=== PATIENT | female | born 1965 | race Caucasian/White ===

== ENCOUNTER → 2017-05-03 | Outpatient (CLI) | payer BC ==
[~2017-05-03] MED LIST: ATOR-54 PO; CALC-393 PO; CETI10TA84 PO; CHOL100010 PO; FLUO20CA35 PO; INTE1KIT4 IM; LEVO125T72 PO; LISI-725 PO; METR1GEL3 EXT; NXM/40 PO; ONDA4TAB65 PO; RANI300T2 PO; SUMA100T15 PO
[2017-05-03 17:54] LABS: ALT/SGPT 24 U/L (12-78); AST/SGOT 15 U/L (15-37); BLOOD UREA NITROGEN 10 mg/dl (7-18); BUN/CREATININE RATIO 12.2 (10-20); CALCIUM 8.6 mg/dl (8.5-10.1); CARBON DIOXIDE 28 mmol/L (21-32); CHLORIDE 107 mmol/L (98-107); CREATININE 0.85 mg/dl (0.60-1.20); GLUCOSE 89 mg/dl (70-99); POTASSIUM 4.1 mmol/L (3.5-5.1); SODIUM 142 mmol/L (136-145)
[2017-05-03 17:57] LABS: ALB/GLOB RATIO 1.1 (0.9-2); ALKALINE PHOSPHATASE 89 U/L (45-117)
[2017-05-03 19:42] LABS: BASO % 0.5 %; BASO ABS # 0.03 K/uL (0-0.2); COMPLETE YES; EOS % 2.1 %; HEMATOCRIT 44.4 % (37-47); IG% 0.2 %; LYMPH % 36.9 %; LYMPH ABS # 2.28 K/uL (1.2-3.4); MEAN CELL VOLUME 94.1 fL (80-100); MEAN CORPUSCULAR HEMOGLOBIN 29.2 pg (25-34); MEAN CORPUSCULAR HGB CONC 31.1 g/dl (32-36); MEAN PLATELET VOLUME 10.2 fL (7.4-10.4); MONO % 10.4 %; NEUT % 49.9 %; PLATELET COUNT 259 K/uL (130-400); RED BLOOD COUNT 4.72 M/uL (4.2-5.4); WHITE BLOOD COUNT 6.18 K/uL (4.8-10.8)
== END | disposition home or self-care (01) ==
LOC: C.LAB 16:52
PROVIDERS: ATTEND Physician Assistant
DX: G35 Multiple sclerosis (principal)

== ENCOUNTER → 2017-05-11 | Outpatient (CLI) | payer BC ==
--- NOTE | 2017-05-11 21:38 | DIAGNOSTIC IMAGING REPORT ---
Brain MRI WITHOUT CONTRAST HISTORY: Weakness in these. G35 Multiple sclerosis TECHNIQUE: Multiplanar multisequence MRI of the brain was performed without the use of contrast. COMPARISON STUDY: Brain MRI 05/13/2014. FINDINGS: There are no areas of restricted diffusion to suggest acute infarction. The midline structures are intact. The paranasal sinuses are clear. The mastoid air cells are clear. The ventricles and sulci are within normal limits for age. There is no mass, hematoma, midline shift. The major vascular flow-voids at the skull base are well maintained. There again noted a few scattered foci of T2 hyperintensity seen within the white matter of the supratentorial brain. These are not significant change compared to the prior study. The optic nerves are symmetric. Small focus of demyelination within the right posterior medulla oblongata remains stable. There is also a 5 mm T2 hyperintense focus within the white matter of the left cerebellar hemisphere. This appears to be new compared to the prior study. IMPRESSION: A few scattered white matter plaques as described above consistent with the patient's history of multiple sclerosis. The majority of these are stable compared to the prior study. There appears to be a single new 5 mm white matter plaque within the left cerebellar hemisphere. Electronically signed by: Regino Guerra M.D. 05/11/2017 9:36 PM Dictated Date/Time: 05/11/2017 9:30 PM
== END | disposition home or self-care (01) ==
LOC: C.MRI 16:20
PROVIDERS: ATTEND Physician Assistant
DX: G35 Multiple sclerosis (principal); Z12.4 Encounter for screening for malignant neoplasm of cervix; N89.8 Other specified noninflammatory disorders of vagina

== ENCOUNTER → 2017-05-11 | Outpatient (CLI) | payer BC | END | disposition home or self-care (01) | LOC: C.PAPS 15:59 | PROVIDERS: ATTEND Physician Assistant | DX: Z12.4 Encounter for screening for malignant neoplasm of cervix (principal) ==

== ENCOUNTER → 2017-05-11 | Outpatient (CLI) | payer BC | END | disposition home or self-care (01) | LOC: C.LABSPEC 15:52 | PROVIDERS: ATTEND Physician Assistant | DX: N89.8 Other specified noninflammatory disorders of vagina (principal) ==

== ENCOUNTER → 2017-05-28 | Outpatient (CLI) | payer BC ==
--- NOTE | 2017-05-28 18:42 | DIAGNOSTIC IMAGING REPORT ---
RIGHT KNEE 1 OR 2 VIEWS ROUTINE CLINICAL HISTORY: Right knee pain. COMPARISON: None FINDINGS: Alignment of the right knee is anatomic. There is no acute fracture. Joint spaces are preserved. There is a suspected small right knee joint effusion. IMPRESSION: 1. No acute fracture. 2. Small right knee joint effusion. Electronically signed by: Dhaval Payton M.D. 05/28/2017 6:41 PM Dictated Date/Time: 05/28/2017 6:40 PM
== END | disposition home or self-care (01) ==
LOC: C.RAD 17:19
PROVIDERS: ATTEND Nurse Practitioner
DX: M25.561 Pain in right knee (principal); M25.461 Effusion, right knee

== ENCOUNTER 2017-11-09 06:27 | Emergency (ER) | payer BC ==
[~2017-11-09] VITALS: Ht 165.1 cm; Wt 73.2 kg
[2017-11-09 06:31] VITALS: TEMP 36.5; Ht 165.1 cm; Wt 73.2 kg
--- NOTE | 2017-11-09 06:51 | EMERGENCY ROOM VISIT NOTE ---
History Report prepared by Grisibe: Mer Elizabeth Under the Supervision of: Dr. Freddy Winter M.D. First contact with patient: 06:40 Chief Complaint: EYE ASSESSMENT Stated Complaint: VISION GOING OUT IN LEFT EYE History of Present Illness The patient is a 52 year old female who presents to the Emergency Room with complaints of worsening vision changes in her left eye. She reports for the past 2 weeks, she has experienced floaters that "look like flies moving around" . Yesterday she started to actually lose vision in the area closest to her nose. She states the area seems like a "flap" that "can move around". She has experienced double vision in her left eye due to complications from MS in the past, but it's never presented like her current symptoms. 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 She complains of diarrhea, but states this is not new. The patient also admits to a history of migraine headaches, but states she has never experienced vision changes with the headaches. She denies any recent fevers, chills, cough, congestion, chest pain, shortness of breath, nausea, vomiting, abdominal pain or urinary symptoms. Source of History: patient Onset: 2 weeks ELECTRONIC COMPONENT PROCESSOR Position: ear (left) Timing: worsening Associated Symptoms: + diarrhea, No fevers, No chills, No cough (or congestion), No chest pain, No SOB, No nausea, No vomiting, No abdominal pain, No urinary symptoms Review of Systems See HPI for pertinent positives and negatives. A total of ten systems were reviewed and were otherwise negative. Past Medical & Surgical Medical Problems: (1) Anxiety State Nec (2) Chronic Liver Dis Nec (3) Depressive Disorder Nec (4) Esophageal Reflux (5) Hypertension (6) IBS (irritable bowel syndrome) (7) Migraine headache Family History Anxiety disorder SISTER, Onset:Unknown Diabetes mellitus FH: cardiovascular disease (No history) FH: obesity SISTER, Onset:Unknown High cholesterol SISTER, Onset:Unknown Hypertension SISTER, Onset:Unknown Psychiatric condition MOTHER, Onset:Unknown (Never treated significant mental health issues, notes that her mother "imagined things") Social History Smoking Status: Current Every Day Smoker Alcohol Use: occasionally Drug Use: none Marital Status: Housing Status: lives with family Occupation Status: retired Current/Historical Medications Scheduled Atorvastatin (Lipitor), 20 MG PO QAM Cholecalciferol (Vitamin D), 1,000 UNITS PO DAILY Esomeprazole Magnesium (Nexium), 40 MG PO QAM Fluoxetine (Prozac), 60 MG PO QAM Interferon Beta-1A (Avonex), 1 DOSE IM [id number] Levothyroxine Sodium (Synthroid), 125 MCG PO QAM Lisinopril (Zestril), 20 MG PO QAM Ranitidine Hcl (Zantac), 300 MG PO QAM Scheduled PRN Sumatriptan Succinate (Imitrex), 1 TAB PO UD PRN for Migraine Allergies Coded Allergies: No Known Allergies (Unverified , 11/09/17) Physical Exam Vital Signs Date Time Temp Pulse Resp B/P (MAP) Pulse Ox O2 Delivery O2 Flow Rate FiO2 11/09/17 07:46 61 16 150/89 98 11/09/17 06:31 36.5 67 20 163/91 95 Room Air Right Eye Acuity: 20/50 Left Eye Acuity: unable to see Physical Exam GENERAL: Awake, alert, well-appearing, in no distress HENT: Normocephalic, atraumatic. Oropharynx unremarkable. EYES: Normal conjunctiva. Sclera non-icteric. PEARRL NECK: Supple. No nuchal rigidity. FROM. No JVD. RESPIRATORY: Clear to auscultation. CARDIAC: Regular rate, normal rhythm. Extremities warm and well perfused. Pulses equal. ABDOMEN: Soft, non-distended. No tenderness to palpation. No rebound or guarding. No masses. RECTAL: Deferred. MUSCULOSKELETAL: Chest examination reveals no tenderness. The back is symmetrical on inspection without obvious abnormality. There is no CVA tenderness to palpation. No joint edema. LOWER EXTREMITIES: Calves are equal size bilaterally and non-tender. No edema. No discoloration. NEURO: Normal sensorium. No sensory or motor deficits noted. SKIN: No rash or jaundice noted. Medical Decision & Procedures ER Provider Diagnostic Interpretation: Radiology results as stated below per my review and interpretation: Retinal detachment seen on bedside ultrasound of the left eye. ED Course 0642: The patient was evaluated in room A10. A complete history and physical exam was performed. 0726: I discussed the patients case with [facility]. The patient will be further evaluated in the office this coming week. 0735: I reevaluated the patient. She is resting comfortably. I discussed her results and discharge instructions and she verbalized complete understanding and agreement. Medical Decision I reviewed the patient's past medical history, medications, and the nursing notes as described above. Differential diagnoses: Retinal detachment, vitreous detachment, vitreous hemorrhage, Amaurosis fugax, stroke and optic nerve retinitis. The patient is a 52-year-old woman with a pmhx HTN, MS, and prior b/l lensectomy who presents to emergency department with the complaint of left eye vision loss that started last night that felt like a shade coming down and her nasal field of vision in the setting of 1 week of feeling flies flying around her vision/floating per history of present illness. On arrival the patient is well-appearing, in no acute distress, afebrile with stable vital signs. Neurologically intact. Per manager assessment the patient has 20/50 vision on the right and no vision on the left. Bedside ultrasound demonstrates gross retinal detachment. Case was discussed with Dr. Mesa, ophthalmology, who recommends the patient come to the clinic to be seen this morning and that given her complete vision loss will likely have surgery on Sunday. Findings and plan for follow-up reviewed with patient. Patient agreeable and d/c'd per discharge instructions. Medication Reconcilliation Current Medication List: was personally reviewed by me Blood Pressure Screening Patient's blood pressure: Elevated blood pressure Blood pressure disposition: Referred to PCP Consults Time Called: 721 Consulting Physician: Dr. Mesa, [facility] Returned Call: 07 I discussed the patients case with Dr. Mesa, [facility]. The patient will be further evaluated in the office this coming week. Impression Primary Impression: Retinal detachment of left eye with giant tear Scribe Attestation The scribe's documentation has been prepared under my direction and personally reviewed by me in its entirety. I confirm that the note above accurately reflects all work, treatment, procedures, and medical decision making performed by me. Departure Information Dispostion Home / Self-Care Referrals Richard Shen M.D. (PCP) Devyn Mesa D.O. Patient Instructions ED Detachment Retinal, My [facility] Additional Instructions Please follow up with ophthalmology, Dr. Mesa, this morning re-evaluation. at [facility], [address], [place] [address] You were found to have a retinal detachment which will likely require prompt surgery, which may occur on Sunday. Return to the emergency department for worsening symptoms as described in the accompanying instructions.
[2017-11-09] MEDS ORDERED: CHOL100010 PO (07:07)
[2017-11-09 07:46] VITALS: BP 150/89; PULSE 61; O2SAT 98
== END 2017-11-09 07:47 | disposition home or self-care (01) ==
LOC: C.EDB 06:28 → C.EDA 07:47
DX: H33.032 Retinal detachment with giant retinal tear, left eye (principal); F41.9 Anxiety disorder, unspecified; K76.9 Liver disease, unspecified; F32.9 Major depressive disorder, single episode, unspecified; K21.9 Gastro-esophageal reflux disease without esophagitis; I10 Essential (primary) hypertension; K58.9 Irritable bowel syndrome, unspecified; G43.909 Migraine, unspecified, not intractable, without status migrainosus; Z83.3 Family history of diabetes mellitus; Z82.49 Family history of ischemic heart disease and other diseases of the circulatory system; F17.210 Nicotine dependence, cigarettes, uncomplicated; Z79.899 Other long term (current) drug therapy

== ENCOUNTER → 2017-11-12 | Day surgery (SDC) | payer BC ==
[2017-11-09 11:12] VITALS: Ht 165.1 cm; Wt 71.8 kg
[~2017-11-12] VITALS: Ht 165.1 cm; Wt 71.8 kg
[~2017-11-12] MED LIST changes: +500ML BSSPLUS 0.5ML EPI1:1000 IRRIG ONE; +ACETAMINOPHEN 325 MG TAB PO PRN; +ATROPINE SULFATE 0.1 MG/ML 5ML SYR IV PRN; +ATROPINE SULFATE 1% OP SOLN 2 ML BTL ONE; +BSS FLUSH ONE; +BUPIVACAINE HCL 0.75% 10 ML AMP/VIAL ONE; -CALC-393 PO; +CEFAZOLIN SOD 1 GM VIAL ONE; -CETI10TA84 PO; +DEXAMETHASONE SOD INJ 4 MG/ML VIAL ONE; +EpHEDrine SULFATE INJ 50 MG/ML AMP IV PRN; +EpINEphrine INJ 1MG/ML AMP 1 MG/ML AMP ONE; +FENTANYL CITRATE INJ 50 MCG/1 ML 2 ML VIAL IV PRN; +FENTANYL CITRATE INJ 50 MCG/1 ML 2 ML VIAL ONE; +HYALURONIDASE HUMAN 150 UNIT/ML INJ ONE; +INDOCYANINE GREEN 25 MG/10 ML ONE; +LACTATED RINGER'S 1000ML 500 ML IV SCH; +LIDOCAINE HCL 2% 2 ML VIAL (20MG/ML) ONE; -METR1GEL3 EXT; +MIDAZOLAM HCL 1 MG/ML 2ML VIAL ONE; +NEOMYCIN/POLYMYX/DEXAMETH OP OINT PER APP CHARGE ONE; +OCUCOAT 1 ML SOLN IO ONE; -ONDA4TAB65 PO; +ONDANSETRON INJ 2 MG/ML 2 ML VIAL IV PRN; +ONDANSETRON INJ 2 MG/ML 2 ML VIAL ONE; +POVIDONE-IODINE OP SOLN (SURGERY CNTR CHARGING ONLY) ONE; +PROPARACAINE 0.5% OP SOLN PER DROP CHARGE OPL SCH; +PROPOFOL IV EMULSION 10 MG/ML 20 ML VIAL IV ONE; +TIMOLOL MALEATE 0.5% OP SOLN PER DROP CHARGE ONE; +TRIAMCINOLONE ACETONIDE OPHTH 40 MG/ML VIAL STERILE IO ONE
[2017-11-12] MEDS: PHENYLEPHRINE HCL 2.5% OP SOLN PER DROP CHARGE OPL SCH ×2 (10:48→10:53)
[2017-11-12] MEDS: TROPICAMIDE 1% OP SOLN PER DROP CHARGE OPL SCH ×2 (10:49→10:54)
--- NOTE | 2017-11-12 11:29 | History & Physical Bridge - SC ---
H&P Re-Evaluation Bridge Note: pt has retinal detachment in left eye and is having vitrectomy left eye. I have examined the patient, reviewed the History & Physical and in the interval since the performance of the History & Physical I have noted the following changes of clinical significance: No changes noted
[2017-11-12 12:27] VITALS: TEMP 36.5
--- NOTE | 2017-11-12 12:27 | [facility] Operative Report ---
Operative Report Date of Service Nov 12, 2017. Operative Report PREOPERATIVE DIAGNOSIS: Retinal detachment, left eye. ICD 10: H33.022 POSTOPERATIVE DIAGNOSIS: same. PROCEDURE: 1. Pars plana vitrectomy, 23 gauge. 2. Fluid-air exchange. 3. Endolaser. 4 Air-gas exchange with SF6 20%. All to the left eye. CPT CODE: 08279 SURGEON: Devyn Mesa D.O. COMPLICATIONS: None. ESTIMATED BLOOD LOSS: None. SPECIMENS: None. ANESTHESIA: Retrobulbar block and MAC. INDICATIONS FOR PROCEDURE: Surgery is indicated to decrease risk of vision loss and potentially improve vision. CONSENT: The risks, benefits and alternatives were discussed with the patient including but not limited to decreased visual acuity, failure to achieve desired results, loss of the eye, infection, pain, glaucoma, lens changes, retinal tears, retinal detachment, the need for more procedures, drooping of the eyelid, blindness, and double vision. The patient is aware of risks and consents to the surgery. Consent is signed and on the chart. OPERATION AND FINDINGS: The patient was brought to the operating room where the patient was identified by name, date, and medical record number. The surgical site was confirmed with the informed written consent. The patient was sedated by the anesthesiology team after which a 50:50 mixture of 2% lidocaine and 0.75% bupivacaine with hyaluronidase was administered in a standard retrobulbar fashion. A total of 4 ml was administered without difficulty. The patient was then prepped and draped in the usual sterile manner for retinal surgery. A wire lid speculum was placed and an Delio 23-gauge trocar cannula system was employed. The inferior temporal trocar cannula was first placed in an angled fashion 3.75mm posterior to the surgical limbus and the infusion cannula was inserted into this cannula after which the intravitreal position was verified prior to turning the infusion on. Two more trocar cannulas were then inserted in an angled fashion, one in the superior temporal, and one in the superior nasal quadrant both 3.75mm posterior to the surgical limbus. A light pipe and vitrector were then introduced into the eye and the BIOM wide angle viewing system was brought into place. Posterior inspection revealed a retinal detachment from 11:30 to 5 o'clock with the inciting retinal break at 1 o'clock. Standard core vitrectomy was performed and the vitreous was insured to be totally detached from the posterior pole with the aid of the vitrector. The vitreous base was shaved for 360 degrees. At this point scleral depression was performed for 360 degrees and one other small retinal tear was noted at 12 o'clock, but no other retinal defects were found. Fluid air exchange was performed and the subretinal fluid was drained through a small retinotomy site that was fashioned superior to the arcades. Endolaser was then used to place laser around all retinal breaks and the drainage retinotomy. Next, an air gas exchange was performed with SF620% for a complete fill of the eye. The trocar cannulas were then removed and found to be air tight. The intraocular pressure was found to be within normal limits by palpation and subconjunctival injections of Kefzol and dexamethasone were administered inferiorly and superiorly. The wire lid speculum was removed. Maxitrol, atropine and timolol were applied to the surface of the eye. A light patch and shield were taped over the surface of the eye and the patient left the Operating Room in stable condition having tolerated the procedure well. DISPOSITION: A gas bracelet was placed on the patient's wrist and gas precautions reviewed as well as the positioning instructions. The patient has an appointment the following morning in the Ophthalmology Clinic. The patient is to call immediately if there are any problems overnight. I attest to the content of the Intraoperative Record and any orders documented therein. Any exceptions are noted below.
--- NOTE | 2017-11-12 12:29 | Discharge Instructions-SurgCtr ---
Discharge Instructions Date of Service Nov 12, 2017. Visit Reason for Visit: Left Eye Retinal Detachment Discharge Discharge Diagnosis / Problem: same Discharge Goals Goal(s): Improve function Activity Recommendations Activity Limitations: per Instructions/Follow-up section * May take Tylenol if needed for discomfort. * Do NOT lay flat on back and position head as follows: face foward and or chin down. Sleep on right side. * Do NOT remove green bracelet until instructed to do so by your surgeon and follow these precautions: * No air travel * No travel above 2500 feet * No nitrous oxide (N2O). * Do NOT remove eye shield. * NO straining, heavy lifting (>15 pounds) or bending below waist. * Avoid getting water or soap directly into operative eye. * Do NOT rub eye. If you experience increasing eye pain not relieved by medication, please contact us immediately at [phone]. If you are unable to reach someone at the above number, call [phone] and ask to speak with the EYE DOCTOR BUSINESS CONTINUITY STRATEGY DIRECTOR. Inform them that you are a Dr. Mesa patient who had recent surgery. Anesthesia . Post Anesthesia Instructions: If you have had General Anesthesia or IV Sedation: * Do not drive today. * Resume driving when surgeon permits. * Do not make important decisions or sign legal documents today. * Call surgeon for: 1. Temperature elevations greater than 101 degrees F. 2. Uncontrollable pain. 3. Excessive bleeding. 4. Persistent nausea and vomiting. 5. Medication intolerance (nausea, vomiting or rash). * For nausea and vomiting use only clear liquids such as: tea, soda, bouillon until nausea subsides, then gradually increase diet as tolerated. * If you have any concerns or questions, call your surgeon's office. If physician is unavailable and it is an emergency, call 911 or go to the nearest emergency room. . Diet Recommendations Home Diet: resume previous diet Procedures Procedures Performed: Left Eye 23 Gauge Vitrectomy, Endolaser, SF6 Gas Instillation Pending Studies Studies pending at discharge: no Medical Emergencies . Who to Call and When: Medical Emergencies: If at any time you feel your situation is an emergency, please call 911 immediately. . Non-Emergent Contact Non-Emergency issues call your: Pulp Grinder And Blender . . "Provider Documentation" section prepared by Devyn Mesa. .
[2017-11-12 12:54] VITALS: BP 120/76; PULSE 56; O2SAT 98
--- NOTE | 2017-11-12 12:56 | Anesthesia Progress Nt - [facility] ---
Anesthesia Post Op Note Date & Time Nov 12, 2017 at 12:55 Vital Signs Pain Intensity: 0 Vital Signs Past 12 Hours Date Time Temp Pulse Resp B/P (MAP) Pulse Ox O2 Delivery O2 Flow Rate FiO2 11/12/17 12:27 36.5 63 16 134/73 (93) 97 Room Air 11/12/17 10:42 36.6 72 16 128/79 (95) 98 Room Air Notes Mental Status: alert / awake / arousable, participated in evaluation Pt Amnestic to Procedure: Yes Nausea / Vomiting: adequately controlled Pain: adequately controlled Airway Patency, RR, SpO2: stable & adequate BP & HR: stable & adequate Hydration State: stable & adequate Anesthetic Complications: no major complications apparent
== END | disposition home or self-care (01) ==
LOC: X.SURG 10:17
PROVIDERS: ATTEND Ophthalmology
DX: H33.022 Retinal detachment with multiple breaks, left eye (principal); I10 Essential (primary) hypertension; E78.00 Pure hypercholesterolemia, unspecified; E03.9 Hypothyroidism, unspecified; K21.9 Gastro-esophageal reflux disease without esophagitis; K44.9 Diaphragmatic hernia without obstruction or gangrene; G35 Multiple sclerosis

== ENCOUNTER → 2017-12-31 | Day surgery (SDC) | payer BC ==
[2017-12-25 13:10] VITALS: Ht 165.1 cm; Wt 71.8 kg
[~2017-12-31] VITALS: Ht 165.1 cm; Wt 71.8 kg
[~2017-12-31] MED LIST changes: -500ML BSSPLUS 0.5ML EPI1:1000 IRRIG ONE; +ACETAMINOPHEN/CODEINE 300/30MG TAB PO ONE; +ATROPINE SULFATE 1% OP OINT PER APPLICATION CHARGE ONE; -BSS FLUSH ONE; -FENTANYL CITRATE INJ 50 MCG/1 ML 2 ML VIAL IV PRN; +NURSING VERBAL MED ORDER ONE; -OCUCOAT 1 ML SOLN IO ONE; -ONDANSETRON INJ 2 MG/ML 2 ML VIAL IV PRN; -ONDANSETRON INJ 2 MG/ML 2 ML VIAL ONE; -TRIAMCINOLONE ACETONIDE OPHTH 40 MG/ML VIAL STERILE IO ONE
[2017-12-31] MEDS: PHENYLEPHRINE HCL 2.5% OP SOLN PER DROP CHARGE OPL SCH ×2 (09:11→09:18)
[2017-12-31] MEDS: TROPICAMIDE 1% OP SOLN PER DROP CHARGE OPL SCH ×2 (09:12→09:19)
--- NOTE | 2017-12-31 09:41 | History & Physical Bridge - SC ---
H&P Re-Evaluation Bridge Note: Pt has macular hole left eye and is having vitrectomy left eye. I have examined the patient, reviewed the History & Physical and in the interval since the performance of the History & Physical I have noted the following changes of clinical significance: No changes noted
--- NOTE | 2017-12-31 10:44 | [facility] Operative Report ---
Operative Report Date of Service Dec 31, 2017. Operative Report PREOPERATIVE DIAGNOSIS: Macular hole, left eye. ICD10 CODE: H35.342 POSTOPERATIVE DIAGNOSIS: same. PROCEDURE: 1. Pars plana vitrectomy, 23 gauge. 2. Membrane peeling of the internal limiting membrane. 3. Fluid-air exchange. 4. Air-gas exchange w/ SF6 20 %. All to the left eye. CPT CODE: 50074 SURGEON: Devyn Mesa D.O. COMPLICATIONS: None. ESTIMATED BLOOD LOSS: None. SPECIMENS: None. ANESTHESIA: Retrobulbar block and MAC. INDICATIONS FOR PROCEDURE: The patient has a macular hole that is visually significant. Vitrectomy surgery is indicated to decrease risk of vision loss and potentially improve vision. CONSENT: The risks, benefits and alternatives were discussed with the patient including but not limited to decreased visual acuity, failure to achieve desired results, loss of the eye, infection, pain, glaucoma, lens changes, retinal tears, retinal detachment, the need for more procedures, drooping of the eyelid, blindness, and double vision. The patient is aware of risks and consents to the surgery. Consent is signed and on the chart. OPERATION AND FINDINGS: The patient was brought to the operating room where the patient was identified by name, date, and medical record number. The surgical site was confirmed with the informed written consent. The patient was sedated by the anesthesiology team after which a 50:50 mixture of 2% lidocaine and 0.75% bupivacaine with hyaluronidase was administered in a standard retrobulbar fashion. A total of 4 ml was administered without difficulty. The patient was then prepped and draped in the usual sterile manner for retinal surgery. A wire lid speculum was placed and an Delio 23-gauge trocar cannula system was employed. The inferior temporal trocar cannula was first placed in an angled fashion 3.75mm posterior to the surgical limbus and the infusion cannula was inserted into this cannula after which the intravitreal position was verified prior to turning the infusion on. Two more trocar cannulas were then inserted in an angled fashion, one in the superior temporal, and one in the superior nasal quadrant both 3.75mm posterior to the surgical limbus. A light pipe and vitrector were then introduced into the eye and the BIOM wide angle viewing system was brought into place. Standard core vitrectomy was performed and the vitreous was insured to be totally detached from the posterior pole with the aid of the vitrector. Next 0.05ml of indocyanine green was placed over the macular surface to stain the internal limiting membrane. This was washed from the eye after 10 seconds. At this point a flat contact lens was placed on the surface of the eye and a flex scraper and ILM forceps were then used to gently peel the internal limiting membrane surrounding the macular hole without difficulty. At this point scleral depression was performed for 360 degrees and no retinal tears or detachments were noted. A soft tip cannula was used to perform a fluid- air exchange. Next, SF6 20% was injected in through the infusion cannula for a complete gas fill of the eye. The trocar cannulas were then removed and found to be air tight. The intraocular pressure was found to be within normal limits by palpation and subconjunctival injections of Kefzol and dexamethasone were administered inferiorly and superiorly. The wire lid speculum was removed. Maxitrol and timolol were applied to the surface of the eye. A light patch and shield were taped over the surface of the eye and the patient left the Operating Room in stable condition having tolerated the procedure well. DISPOSITION: A gas bracelet was placed on the patients wrist. The patient was instructed to maintain a face down position overnight. The patient is to call immediately if there are any problems overnight. I attest to the content of the Intraoperative Record and any orders documented therein. Any exceptions are noted below.
[2017-12-31 10:46] VITALS: TEMP 36.9
--- NOTE | 2017-12-31 10:46 | Discharge Instructions-SurgCtr ---
Discharge Instructions Date of Service Dec 31, 2017. Visit Reason for Visit: Left Eye Macular Hole Discharge Discharge Diagnosis / Problem: same Discharge Goals Goal(s): Improve function Activity Recommendations Activity Limitations: per Instructions/Follow-up section Anesthesia . Post Anesthesia Instructions: If you have had General Anesthesia or IV Sedation: * Do not drive today. * Resume driving when surgeon permits. * Do not make important decisions or sign legal documents today. * Call surgeon for: 1. Temperature elevations greater than 101 degrees F. 2. Uncontrollable pain. 3. Excessive bleeding. 4. Persistent nausea and vomiting. 5. Medication intolerance (nausea, vomiting or rash). * For nausea and vomiting use only clear liquids such as: tea, soda, bouillon until nausea subsides, then gradually increase diet as tolerated. * If you have any concerns or questions, call your surgeon's office. If physician is unavailable and it is an emergency, call 911 or go to the nearest emergency room. . Instructions / Follow-Up Instructions / Follow-Up * May take Tylenol if needed for discomfort. * Do NOT lay flat on back and position head as follows: face forward/chin down as much as possible. Sleep right side down or face down. * Do NOT remove green bracelet until instructed to do so by your surgeon and follow these precautions: * No air travel * No travel above 2500 feet * No nitrous oxide (N2O). * Do NOT remove eye shield. * NO straining, heavy lifting (>15 pounds) or bending below waist. * Avoid getting water or soap directly into operative eye. * Do NOT rub eye. If you experience increasing eye pain not relieved by medication, please contact us immediately at [phone]. If you are unable to reach someone at the above number, call [phone] and ask to speak with the EYE DOCTOR CAR DETAILER. Inform them that you are a Dr. Mesa patient who had recent surgery. Diet Recommendations Home Diet: resume previous diet Procedures Procedures Performed: Left Eye 23 Gauge Vitrectomy, Membrane Peeling, SF6 Gas Insertion Pending Studies Studies pending at discharge: no Medical Emergencies . Who to Call and When: Medical Emergencies: If at any time you feel your situation is an emergency, please call 911 immediately. . Non-Emergent Contact Non-Emergency issues call your: Controls Project Engineer . . "Provider Documentation" section prepared by Devyn Mesa. .
--- NOTE | 2017-12-31 10:49 | Anesthesia Progress Nt - [facility] ---
Anesthesia Post Op Note Date & Time Dec 31, 2017 at 10:49 Vital Signs Pain Intensity: 0 Vital Signs Past 12 Hours Date Time Temp Pulse Resp B/P (MAP) Pulse Ox O2 Delivery O2 Flow Rate FiO2 12/31/17 09:03 36.5 80 16 105/73 (84) 95 Room Air Notes Mental Status: alert / awake / arousable, participated in evaluation Pt Amnestic to Procedure: Yes Nausea / Vomiting: adequately controlled Pain: adequately controlled Airway Patency, RR, SpO2: stable & adequate BP & HR: stable & adequate Hydration State: stable & adequate Anesthetic Complications: no major complications apparent
[2017-12-31 11:20] VITALS: BP 113/64; PULSE 72; O2SAT 99
== END | disposition home or self-care (01) ==
LOC: X.SURG 08:46
PROVIDERS: ATTEND Ophthalmology
DX: H35.342 Macular cyst, hole, or pseudohole, left eye (principal); F32.9 Major depressive disorder, single episode, unspecified; E03.9 Hypothyroidism, unspecified; G35 Multiple sclerosis; F17.200 Nicotine dependence, unspecified, uncomplicated; Z79.899 Other long term (current) drug therapy; Z82.49 Family history of ischemic heart disease and other diseases of the circulatory system; Z82.3 Family history of stroke; Z83.3 Family history of diabetes mellitus

== ENCOUNTER 2018-01-30 10:12 | Emergency (ER) | payer BC ==
[~2018-01-30] VITALS: Ht 165.1 cm; Wt 72.5 kg
[~2018-01-30 10:12] MED LIST changes: -ACETAMINOPHEN 325 MG TAB PO PRN; -ACETAMINOPHEN/CODEINE 300/30MG TAB PO ONE; -ATROPINE SULFATE 0.1 MG/ML 5ML SYR IV PRN; -ATROPINE SULFATE 1% OP OINT PER APPLICATION CHARGE ONE; -ATROPINE SULFATE 1% OP SOLN 2 ML BTL ONE; -BUPIVACAINE HCL 0.75% 10 ML AMP/VIAL ONE; -CEFAZOLIN SOD 1 GM VIAL ONE; -DEXAMETHASONE SOD INJ 4 MG/ML VIAL ONE; -EpHEDrine SULFATE INJ 50 MG/ML AMP IV PRN; -EpINEphrine INJ 1MG/ML AMP 1 MG/ML AMP ONE; -FENTANYL CITRATE INJ 50 MCG/1 ML 2 ML VIAL ONE; -HYALURONIDASE HUMAN 150 UNIT/ML INJ ONE; -INDOCYANINE GREEN 25 MG/10 ML ONE; -LACTATED RINGER'S 1000ML 500 ML IV SCH; -LIDOCAINE HCL 2% 2 ML VIAL (20MG/ML) ONE; -MIDAZOLAM HCL 1 MG/ML 2ML VIAL ONE; -NEOMYCIN/POLYMYX/DEXAMETH OP OINT PER APP CHARGE ONE; -NURSING VERBAL MED ORDER ONE; -POVIDONE-IODINE OP SOLN (SURGERY CNTR CHARGING ONLY) ONE; -PROPARACAINE 0.5% OP SOLN PER DROP CHARGE OPL SCH; -PROPOFOL IV EMULSION 10 MG/ML 20 ML VIAL IV ONE; -TIMOLOL MALEATE 0.5% OP SOLN PER DROP CHARGE ONE
[2018-01-30 10:19] VITALS: TEMP 36.5; Ht 165.1 cm; Wt 72.5 kg
[2018-01-30] MEDS ORDERED: ALUMINUM/MAGNESIUM SUSP 30 ML UDC PO STA (11:11)
[2018-01-30] MEDS ORDERED: LIDOCAINE HCL 2% VISC SOLN 20 ML UDC PO STA (11:11)
--- NOTE | 2018-01-30 12:09 | DIAGNOSTIC IMAGING REPORT ---
CHEST ONE VIEW PORTABLE HISTORY: 53 years-old Female pain after swallowing egg mcmuffin acute abdominal pain after eating COMPARISON: CT abdomen and pelvis 04/20/2016 TECHNIQUE: Portable AP view of the chest FINDINGS: Cardiomediastinal and hilar silhouettes are within normal limits. There is no pneumothorax, pleural effusion, focal airspace consolidation or overt pulmonary edema. Minimal linear subsegmental atelectasis or scarring of the left lung base laterally. Bones of the chest appear grossly intact. Degenerative changes are noted about the spine and right shoulder. IMPRESSION: No acute process. The above report was generated using voice recognition software. It may contain grammatical, syntax or spelling errors. Electronically signed by: Helio Cervantes M.D. 01/30/2018 12:08 PM Dictated Date/Time: 01/30/2018 12:07 PM
--- NOTE | 2018-01-30 12:28 | EMERGENCY ROOM VISIT NOTE ---
History Report prepared by Veronique: Florence Mishra Under the Supervision of: Dr. Chase Klein D.O. First contact with patient: 11:05 Chief Complaint: FOOD BOLUS Stated Complaint: CHOKING Nursing Triage Summary: patient presents ambulatory to triage. states she feels like she swallowed something sharp in her egg mcmuffin this morning. No trouble swallowing at this time. denies shortness of breath History of Present Illness The patient is a 53 year old female who presents to the Emergency Room with complaints of an episode of a food bolus occurring 1.5 hours [employer]. The patient was eating an Egg McMuffin from [employer] for breakfast this morning. While she was eating she felt like she swallowed something sharp and it felt like it was stuck in her throat. She felt like it was blocking part of her airway. She felt like it was stuck for about 45 minutes. While she was sitting in the waiting room of the ED it seemed to pass on its own. The patient states that she is feeling much better now. She has some irritation of her esophagus but reports a history of acid reflux and states that is typical of her reflux. Source of History: patient Onset: 1.5 hours [employer] Position: throat Quality: other (stuck) Timing: other (episode) Modifying Factors (Worsening): eating Modifying Factors (Relieving): other (time) Review of Systems See HPI for pertinent positives & negatives. A total of 10 systems reviewed and were otherwise negative. Past Medical & Surgical Medical Problems: (1) Anxiety State Nec (2) Chronic Liver Dis Nec (3) Depressive Disorder Nec (4) Esophageal Reflux (5) Hypertension (6) IBS (irritable bowel syndrome) (7) Migraine headache Family History Anxiety disorder SISTER, Onset:Unknown Diabetes mellitus FH: cardiovascular disease (No history) FH: obesity SISTER, Onset:Unknown High cholesterol SISTER, Onset:Unknown Hypertension SISTER, Onset:Unknown Psychiatric condition MOTHER, Onset:Unknown (Never treated significant mental health issues, notes that her mother "imagined things") Social History Smoking Status: Current Every Day Smoker Alcohol Use: occasionally Drug Use: none Marital Status: Housing Status: lives with family Occupation Status: retired Current/Historical Medications Scheduled Atorvastatin (Lipitor), 20 MG PO QAM Cholecalciferol (Vitamin D), 1,000 UNITS PO DAILY Esomeprazole Magnesium (Nexium), 40 MG PO QAM Fluoxetine (Prozac), 60 MG PO QAM Interferon Beta-1A (Avonex), 1 DOSE IM [id number] Levothyroxine Sodium (Synthroid), 125 MCG PO QAM Lisinopril (Zestril), 20 MG PO QAM Ranitidine Hcl (Zantac), 300 MG PO QAM Scheduled PRN Sumatriptan Succinate (Imitrex), 1 TAB PO UD PRN for Migraine Allergies Coded Allergies: No Known Allergies (Unverified , 01/30/18) Physical Exam Vital Signs Date Time Temp Pulse Resp B/P (MAP) Pulse Ox O2 Delivery O2 Flow Rate FiO2 01/30/18 12:45 62 18 133/84 98 01/30/18 10:22 96 Room Air 01/30/18 10:19 36.5 65 18 121/67 98 Room Air Physical Exam CONSTITUTIONAL/VITAL SIGNS: Reviewed / noted above. GENERAL: Non-toxic in appearance. INTEGUMENTARY: Warm, dry, and [place]. HEAD: Normocephalic. EYES: without scleral icterus or trauma. ENT/OROPHARYNX: clear and moist. LYMPHADENOPATHY/NECK: Is supple without lymphadenopathy or meningismus. RESPIRATORY: Lungs clear and equal. CARDIOVASCULAR: Regular rate and rhythm. GI/ABDOMEN: Soft and nontender. No organomegaly or pulsatile mass. No rebound or guarding. Normal bowel sounds. EXTREMITIES: Warm and well perfused. BACK: No CVA tenderness. NEUROLOGICAL: Intact without focal deficits. PSYCHIATRIC: normal affect. MUSCULOSKELETAL: Normally developed with good muscle tone. Medical Decision & Procedures ER Provider Diagnostic Interpretation: Radiology results as stated below per my review and radiologist interpretation: CHEST ONE VIEW PORTABLE HISTORY: 53 years-old Female pain after swallowing egg mcmuffin acute abdominal pain after eating COMPARISON: CT abdomen and pelvis 04/20/2016 TECHNIQUE: Portable AP view of the chest FINDINGS: Cardiomediastinal and hilar silhouettes are within normal limits. There is no pneumothorax, pleural effusion, focal airspace consolidation or overt pulmonary edema. Minimal linear subsegmental atelectasis or scarring of the left lung base laterally. Bones of the chest appear grossly intact. Degenerative changes are noted about the spine and right shoulder. IMPRESSION: No acute process. The above report was generated using voice recognition software. It may contain grammatical, syntax or spelling errors. Electronically signed by: Helio Cervantes M.D. 01/30/2018 12:08 PM Dictated Date/Time: 01/30/2018 12:07 PM Medications Administered Medications (Trade) Dose Ordered Sig/Bryan Route Start Time Stop Time Status Last Admin Dose Admin Al Hydroxide/Mg Hydroxide (Maalox Susp) 30 ml NOW STAT PO 01/30/18 11:11 01/30/18 11:13 DC 01/30/18 11:31 30 ML Lidocaine HCl (Viscous Lidocaine 2% Soln) 10 ml NOW STAT PO 01/30/18 11:11 01/30/18 11:13 DC 01/30/18 11:31 10 ML ED Course 1105: Previous medical records were reviewed. The patient was evaluated in room C10. A complete history and physical examination was performed. 1111: Lidocaine HCl 10 ml PO, Maalox Susp 30 ml PO 1239: I reassessed the patient at this time. She is feeling better and resting comfortably. I discussed the results and treatment plan with the patient. I answered all pertaining questions that she had. She expressed understanding and verbalized agreement. The patient will be discharged home. Medical Decision Differentials considered include acute myocardial infarction, acute coronary syndrome, myocarditis, pericarditis, pericardial effusions /tamponade, esophageal perforation, thoracic aortic dissection, pulmonary embolism, pneumonia, pneumothorax, pancreatitis, shingles, acute cholecystitis, and perforated abdominal viscus. This is a 53-year-old female who presents to the ED with a chief complaint of throat/chest pain after eating and Egg McMuffin. The patient states that she developed the symptoms about 1-1/2 hours prior to arrival. She states that she is eating the Egg McMuffin sandwich when she suddenly developed a pain in her throat and felt like the stent was did not go down completely. The patient states that her symptoms resolved about 45 minutes afterwards. She is currently having minimal symptoms. She is able to swallow. The patient has no other complaints. Exam was unremarkable. Chest x-ray did not show acute process. The patient was given a GI cocktail. Her symptoms did improve some. She was felt to be stable for discharge. She has seen GI in the past for endoscopy. She has not had any issues other than reflux. She was recommended to follow-up with her PCP and GI. Medication Reconcilliation Current Medication List: was personally reviewed by me Blood Pressure Screening Patient's blood pressure: Normal blood pressure Impression Primary Impression: Esophagus, foreign body Scribe Attestation The scribe's documentation has been prepared under my direction and personally reviewed by me in its entirety. I confirm that the note above accurately reflects all work, treatment, procedures, and medical decision making performed by me. Departure Information Dispostion Being Evaluated By Hospitalist Referrals Richard Shen M.D. (PCP) Patient Instructions My [facility] Additional Instructions X-ray today was normal. Follow-up with your GI doctor and PCP for recheck, especially if symptoms persist. Return to the emergency department for worsening or new symptoms or any concerns. You have been examined and treated today on an emergency basis only. This is not a substitute for, or an effort to provide, complete comprehensive medical care. It is impossible to recognize and treat all injuries or illnesses in a single emergency department visit. It is therefore important that you follow up closely with your doctor. Call as soon as possible for an appointment.
[2018-01-30 12:45] VITALS: BP 133/84; PULSE 62; O2SAT 98
== END 2018-01-30 12:45 | disposition home or self-care (01) ==
LOC: C.EDB 10:13 → C.EDC 12:45
DX: T18.108A Unspecified foreign body in esophagus causing other injury, initial encounter (principal); X58.XXXA Exposure to other specified factors, initial encounter; F41.9 Anxiety disorder, unspecified; K76.9 Liver disease, unspecified; F32.9 Major depressive disorder, single episode, unspecified; K21.9 Gastro-esophageal reflux disease without esophagitis; I10 Essential (primary) hypertension; K58.9 Irritable bowel syndrome, unspecified; G43.909 Migraine, unspecified, not intractable, without status migrainosus; Z83.3 Family history of diabetes mellitus; Z82.49 Family history of ischemic heart disease and other diseases of the circulatory system; F17.210 Nicotine dependence, cigarettes, uncomplicated; Z79.899 Other long term (current) drug therapy

== ENCOUNTER → 2018-03-14 | Outpatient (CLI) | payer BC ==
[~2018-03-14] MED LIST changes: +CETI10TA84 PO; +GADAVIST IV PRN; +SERT50TA PO
--- NOTE | 2018-03-14 12:07 | DIAGNOSTIC IMAGING REPORT ---
MRI OF THE BRAIN WITHOUT AND WITH IV CONTRAST CLINICAL HISTORY: G35 Multiple [id number] COMPARISON STUDY: 05/11/2017 TECHNIQUE: MRI of the brain was performed from the vertex to the skull base utilizing various T1 and T2 weighted sequences. Following the IV administration of 7 mL of Gadavist contrast, additional enhanced images were obtained. FINDINGS: Sagittal T1, axial diffusion, proton density and T2 weighted axial, coronal FLAIR, and pre and post axial T1-weighted images were acquired. These were supplemented with post gadolinium coronal T1 weighted images. No intra or extra-axial mass lesions are visualized. Axial diffusion-weighted images reveal no evidence of acute or subacute infarction. There is no evidence of ventricular dilatation. Proton density T2-weighted and FLAIR images reveal there are persistent foci of increased T2 and FLAIR signal within the white matter, unchanged the preceding study. Several of the lesions have an orientation perpendicular to the ependymal reticular surface. The findings are consistent with the clinical diagnosis of multiple sclerosis. There are no abnormal flow voids. There is no evidence of pathologic enhancement. IMPRESSION: No change from the preceding study. Scattered white matter lesions in a distribution consistent with the clinical diagnosis of multiple sclerosis. No evidence of pathologic enhancement. Electronically signed by: Alberto Matthew M.D. 03/14/2018 12:05 PM Dictated Date/Time: 03/14/2018 12:02 PM
--- NOTE | 2018-03-14 13:14 | DIAGNOSTIC IMAGING REPORT ---
CERVICAL SPINE COMBO CLINICAL HISTORY: 53 years-old Female presenting with G35 Multiple [id number]. TECHNIQUE: Multisequence, multiplanar MR imaging of the cervical spine was performed before and after the administration of intravenous contrast. IV contrast: 7 mL of Gadavist. COMPARISON: 04/09/2009. FINDINGS: Localizer images: Unremarkable. Normal cervical lordosis. Vertebral bodies maintain normal height, alignment, and bone marrow signal intensity. Intervertebral disc heights preserved. Focal degenerative changes at C5-6 and C6-7, where there are disc osteophyte complexes. This results in mild effacement of the ventral thecal sac. No contouring or flattening of the spinal cord to suggest impingement. Disc osteophyte complex/uncovertebral hypertrophy results in moderate right and mild left neural foraminal narrowing at C5-6. No significant neural foraminal narrowing at C6-7. Craniocervical junction normal. Abnormal spinal cord signal intensity evident at C4-5 (series 16 image 12). This was present on the prior exam. No significant enhancement in this region. This abnormal spinal cord signal intensity extends over less than one vertebral body length. No other sites of abnormal spinal cord signal intensity. Paraspinal soft tissues within normal limits. No abnormal enhancement. IMPRESSION: 1. Stable appearance of the abnormal spinal cord signal at the level of C4-5. No evidence of new spinal cord lesion or abnormal enhancement to suggest active demyelination. 2. Degenerative changes focally at C5-6 and C6-7 with resultant mild spinal stenosis. Neural foraminal narrowing also results at C5-6. Electronically signed by: Arun Levin M.D. 03/14/2018 1:12 PM Dictated Date/Time: 03/14/2018 1:06 PM
== END | disposition home or self-care (01) ==
LOC: C.MRI 10:23
PROVIDERS: ATTEND Physician Assistant
DX: G35 Multiple sclerosis (principal)

== ENCOUNTER → 2018-03-22 | Outpatient (CLI) | payer BC ==
[~2018-03-22] MED LIST changes: -GADAVIST IV PRN
--- NOTE | 2018-03-22 15:25 | DIAGNOSTIC IMAGING REPORT ---
R HUMERUS MIN 2 VIEWS ROUTINE CLINICAL HISTORY: PAIN IN JOINT OF RIGHT SHOULDER pain COMPARISON: None. DISCUSSION: The bones and joint spaces appear intact. There is no evidence of fracture, dislocation or bony disease. There is no evidence for soft tissue swelling. IMPRESSION: Negative study. The above report was generated using voice recognition software. It may contain grammatical, syntax or spelling errors. Electronically signed by: Andrew Kim M.D. 03/22/2018 3:23 PM Dictated Date/Time: 03/22/2018 3:23 PM
--- NOTE | 2018-03-22 15:29 | DIAGNOSTIC IMAGING REPORT ---
R SHOULDER MIN 2 VIEWS ROUTINE CLINICAL HISTORY: Right shoulder pain. COMPARISON: None FINDINGS: Incidental note is made of a bone island within the anterior right fifth rib. No acute fracture is identified within the right shoulder. Alignment is anatomic. There is moderate osteoarthritis of the right acromioclavicular and glenohumeral joints. IMPRESSION: 1. No acute fracture or dislocation of the right shoulder. 2. 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 Electronically signed by: Dhaval Payton M.D. 03/22/2018 3:27 PM Dictated Date/Time: 03/22/2018 3:26 PM
== END | disposition home or self-care (01) ==
LOC: C.RAD 14:49
PROVIDERS: ATTEND Physician Assistant Medical
DX: M25.511 Pain in right shoulder (principal); M19.011 Primary osteoarthritis, right shoulder

== ENCOUNTER → 2018-06-19 | Outpatient (CLI) | payer BC ==
[~2018-06-19] MED LIST changes: +DICL-201 PO; -SERT50TA PO
[2018-06-19 10:01] LABS: BASO % 0.3 %; BASO ABS # 0.02 K/uL (0-0.2); EOS % 1.6 %; EOS ABS # 0.11 K/uL (0-0.5); HEMATOCRIT 42.8 % (37-47); HEMOGLOBIN 14.6 g/dL (12.0-16.0); IG# 0.01 K/uL (0.00-0.02); LYMPH % 33.9 %; LYMPH ABS # 2.29 K/uL (1.2-3.4); MEAN CELL VOLUME 93.7 fL (80-100); MEAN CORPUSCULAR HEMOGLOBIN 31.9 pg (25-34); MEAN CORPUSCULAR HGB CONC 34.1 g/dl (32-36); MEAN PLATELET VOLUME 10.6 fL (7.4-10.4); MONO % 7.7 %; MONO ABS # 0.52 K/uL (0.11-0.59); NEUT % 56.4 %; NEUT ABS # 3.81 K/uL (1.4-6.5); PLATELET COUNT 241 K/uL (130-400); RED CELL DISTRIBUTION WIDTH CV 12.9 % (11.5-14.5); RED CELL DISTRIBUTION WIDTH SD 44.5 fL (36.4-46.3); WHITE BLOOD COUNT 6.76 K/uL (4.8-10.8)
== END | disposition home or self-care (01) ==
LOC: C.LAB 09:13
PROVIDERS: ATTEND Physician Assistant Medical
DX: Z01.82 Encounter for allergy testing (principal)